=== PATIENT | male | born 2000 | race Two or more races ===

== ENCOUNTER 2024-02-16 12:06 | Emergency (ER) | payer MEDICAID, BC ==
[2024-02-16 14:02] LABS: APPEARANCE,URINE CLEAR; BILIRUBIN,URINE NEGATIVE (NEGATIVE); COLOR,URINE YELLOW; GLUCOSE,URINE NEGATIVE (NEGATIVE); KETONES,URINE NEGATIVE (NEGATIVE); LEUKOCYTE ESTERASE,URINE NEGATIVE (NEGATIVE); NITRITE,URINE NEGATIVE (NEGATIVE); OCCULT BLOOD,URINE NEGATIVE (NEGATIVE); PROTEIN,URINE NEGATIVE (NEGATIVE); UROBILINOGEN,URINE 0.2 EU/dL (<2.0)
[2024-02-16 15:32] LABS: C. TRACHOMATIS BY PCR NOT DETECTED; N. GONORRHOEAE BY PCR NOT DETECTED
== END 2024-02-16 15:43 | disposition home or self-care (01) ==
LOC: MW.ED 12:06
DX: N50.811 Right testicular pain (principal); Z75.8 Other problems related to medical facilities and other health care
CPT/HCPCS: 76870; 76870-26; 81003; 87491; 87591; 99284